=== PATIENT | male | born 1995 | race Caucasian/White ===

== ENCOUNTER 2023-05-21 04:29 | Inpatient (IN) | payer BC, SELFPAY ==
[2023-05-21 04:34] VITALS: BP 170/102; PULSE 84; RESP 20; TEMP 36.6; O2SAT 98
[2023-05-21 04:36] VITALS: BMI 46.0
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
[2023-05-21 06:00] VITALS: BP 137/78; PULSE 84; RESP 18; TEMP 36.8; O2SAT 96
--- NOTE | 2023-05-21 08:50 | PC.OT ---
OT EVALUATION ATTEMPTED; PATIENT IS SLEEPING SOUNDLY AND SNORING LOUDLY. DOES NOT AWAKEN WHEN NAME CALLED. WILL ATTEMPT AGAIN AT A LATER TIME.
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
[2023-05-21 14:00] VITALS: BP 155/79; PULSE 97; RESP 18; TEMP 36.8; O2SAT 95
[2023-05-21] MEDS: citalopram 20 mg Tablet PO (19:00)
[2023-05-21 20:28] VITALS: BP 165/102; PULSE 104; RESP 18; TEMP 36.6; O2SAT 95
[2023-05-21] MEDS: trazodone 50 mg Tablet PO (20:41)
[2023-05-22 06:00] VITALS: BP 151/79; PULSE 86; RESP 16; TEMP 36.5; O2SAT 97
[2023-05-22] MEDS: citalopram 20 mg Tablet PO (08:39)
[2023-05-22 14:00] VITALS: BP 137/77; PULSE 81; RESP 18; TEMP 36.8; O2SAT 97
[2023-05-22 20:18] VITALS: BP 160/87; PULSE 88; RESP 18; TEMP 36.6; O2SAT 96
--- NOTE | 2023-05-22 20:21 | W.PM.NPUPNS ---
Subjective NPU Subjective: Patient presented today reporting that he is doing okay with the Celexa being restarted. We discussed the fact that we were going to continue taking things 1 day at a time. He denies any ill effects from the overdose and denies any side effects from the Celexa. We discussed making sure appropriate resources were in place for discharge and then identifying when discharge would be appropriate. Mental Status Exam MSE Comments: This is an obese versus morbidly obese, white male, in hospital scrubs, with limited grooming and adequate eye contact. No abnormal movements, except for psychomotor retardation. Cooperative with exam in mild distress. Speech was normal rate and volume. Mood described as good; affect congruent. Thought process, organized. Thought content: patient denied any suicidal or homicidal ideation, there were no delusions reported or noted, patient denied any auditory or visual hallucinations. Attention, concentration, and memory appeared intact, but none were formally tested. Alert and oriented times three. Insight and judgment appear fair. Impulse control is fair. Vitals/I&O/Wt Last Vital Signs Temp 97.9 F 05/22/23 20:18 Pulse 88 05/22/23 20:18 Resp 18 05/22/23 20:18 BP 160/87 05/22/23 20:18 Pulse Ox 96 05/22/23 20:18 O2 Del Method Room Air 05/22/23 20:18 Weight last 48 hrs Weight 171.458 kg A&P Assessment and plan (1) Major depressive disorder, recurrent: (2) Alcohol use disorder in remission: Plan This is a 28-year-old, white male, with genetic loading for mental health and addiction issues, with a relatively short history of treatment with medication through his PCP, and no other outpatient services, who presents after suicidality and an overdose, with a willingness to have medication changes. 1. Restarted Celexa 20 mg po q daily. 2. Encourage individual, group, and milieu therapy. 3. Continue q-15-minute checks for safety. Involuntary Hold Information 96 Hour Hold: 96 Hour Involuntary Admission: No Attestations NPU Medical Necessity Statement*: Inpatient hospitalization is medically necessary and the clinically appropriate intervention, at this time. We will monitor medications and make changes as indicated. Likely length of stay is 2-4 days. Coding Level of Care Code Acute Code for [facility] Diagnoses Major depressive disorder, recurrent F33.9 Alcohol use disorder in remission F10.91
[2023-05-22] MEDS: trazodone 50 mg Tablet PO (22:05)
[2023-05-23 06:00] VITALS: BP 149/68; PULSE 88; RESP 20; TEMP 36.6; O2SAT 97
[2023-05-23] MEDS: citalopram 20 mg Tablet PO (08:17)
[2023-05-23 14:00] VITALS: BP 145/90; PULSE 85; RESP 16; O2SAT 95
--- NOTE | 2023-05-23 18:46 | W.PM.NPUPNS ---
Subjective NPU Subjective: Patient presented today reporting that he is feeling better. He has been in communication with family members and reports that they are supportive. We talked about the fact that he is looking better but his overdose was real and very dangerous both in the medication used and the fact that he would have been in dire situation without emergency interventions. We discussed getting outpatient treatment resources in place and the likely discharge by Saturday. We agreed we would talk again tomorrow but that the treatment team is leaning towards monitoring him over the weekend. Mental Status Exam MSE Comments: This is an obese versus morbidly obese, white male, in hospital scrubs, with limited grooming and adequate eye contact. No abnormal movements, except for mild psychomotor retardation. Cooperative with exam in mild distress. Speech was normal rate and volume. Mood described as good; affect congruent. Thought process, organized. Thought content: patient denied any suicidal or homicidal ideation, there were no delusions reported or noted, patient denied any auditory or visual hallucinations. Attention, concentration, and memory appeared intact, but none were formally tested. Alert and oriented times three. Insight and judgment appear fair. Impulse control is fair on the unit. Vitals/I&O/Wt Last Vital Signs Temp 97.9 F 05/23/23 06:00 Pulse 106 H 05/23/23 19:34 Resp 18 05/23/23 19:34 BP 134/78 05/23/23 19:34 Pulse Ox 97 05/23/23 19:34 O2 Del Method Room Air 05/23/23 19:34 A&P Assessment and plan (1) Major depressive disorder, recurrent: (2) Alcohol use disorder in remission: Plan This is a 28-year-old, white male, with genetic loading for mental health and addiction issues, with a relatively short history of treatment with medication through his PCP, and no other outpatient services, who presents after suicidality and an overdose, with a willingness to have medication changes. 1. Restarted Celexa 20 mg po q daily. 2. Encourage individual, group, and milieu therapy. 3. Continue q-15-minute checks for safety. Involuntary Hold Information 96 Hour Hold: 96 Hour Involuntary Admission: No Attestations NPU Medical Necessity Statement*: Inpatient hospitalization is medically necessary and the clinically appropriate intervention, at this time. We will monitor medications and make changes as indicated. Likely length of stay is 2-4 days. Coding Level of Care Code Acute Code for [facility] Fwd Diagnoses Major depressive disorder, recurrent F33.9 Alcohol use disorder in remission F10.91
[2023-05-23 19:34] VITALS: BP 134/78; PULSE 106; RESP 18; O2SAT 97
[2023-05-23] MEDS: trazodone 50 mg Tablet PO (21:19)
[2023-05-24 06:00] VITALS: BP 127/69; PULSE 84; RESP 14; TEMP 36.5; O2SAT 97
--- NOTE | 2023-05-24 07:37 | PC.NURSE ---
Patient watching [employer] channel in dayroom upon this RN's arrival. He denies avh and si/hi. He states he does not feel anxious at all this morning. 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 Patient has a very pleasant disposition this morning and smiled several times during assessment. Agreed to let this RN know if he began having any suicidal thoughts or experiencing anxiety.
[2023-05-24] MEDS: citalopram 20 mg Tablet PO (08:01)
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
[2023-05-24 12:44] VITALS: BP 127/69; PULSE 84; RESP 14; TEMP 36.5; O2SAT 97
[2023-05-24 14:00] VITALS: BP 158/100; PULSE 94; RESP 15; TEMP 36.6; O2SAT 96
== END 2023-05-24 15:21 | disposition home or self-care (01) | DRG 885 ==
PROVIDERS: Admitting Provider Psychiatry & Neurology Psychiatry; Visit Provider Psychiatry & Neurology Psychiatry
DX: F33.9 Major depressive disorder, recurrent, unspecified (principal); R45.851 Suicidal ideations; Z68.42 Body mass index [BMI] 45.0-49.9, adult; Z91.51 Personal history of suicidal behavior; Z87.891 Personal history of nicotine dependence; F10.91 Alcohol use, unspecified, in remission; E66.01 Morbid (severe) obesity due to excess calories
CPT/HCPCS: 97150; 97165